=== PATIENT | female | born 1955 | race Caucasian/White ===

== ENCOUNTER → 2023-11-20 13:15 | Outpatient (REF) | payer MEDICARE, OTHER, SELFPAY | LOC: RAD 13:15 | PROVIDERS: ATTENDING PHYSICIAN Internal Medicine Hematology & Oncology; REFERRING PHYSICIAN Family Medicine | DX: M79.605 Pain in left leg (principal); M79.604 Pain in right leg; I26.99 Other pulmonary embolism without acute cor pulmonale; I82.401 Acute embolism and thrombosis of unspecified deep veins of right lower extremity; D68.51 Activated protein C resistance | CPT/HCPCS: 93922; 93970 ==

== ENCOUNTER → 2024-02-07 18:08 | Outpatient (REF) | payer MEDICARE, OTHER, SELFPAY | LOC: MRI 18:08 | PROVIDERS: ATTENDING PHYSICIAN Family Medicine | DX: M54.50 Low back pain, unspecified (principal) | CPT/HCPCS: 72148 ==

== ENCOUNTER 2024-08-30 06:16 | Day surgery (SDC) | payer MEDICARE, OTHER, SELFPAY | END 2024-08-30 08:58 | disposition home or self-care (01) | LOC: GI 06:16 | PROVIDERS: ATTENDING PHYSICIAN Specialist | DX: Z12.11 Encounter for screening for malignant neoplasm of colon (principal); D12.0 Benign neoplasm of cecum; D12.2 Benign neoplasm of ascending colon; K57.30 Diverticulosis of large intestine without perforation or abscess without bleeding; Q43.8 Other specified congenital malformations of intestine; Z86.0101 Personal history of adenomatous and serrated colon polyps | CPT/HCPCS: 45385; 45380; 88305 ==